=== PATIENT | male | born 1970 | race Caucasian/White ===

== ENCOUNTER 2023-02-16 13:14 | Emergency (ER) | payer SELFPAY ==
[2023-02-16] VITALS (7 sets, daily range): BP systolic 139–170; BP diastolic 77–100; PULSE 80–121; RESP 14–21; TEMP 36.9–37.2; O2SAT 95–99; BMI 29.6
--- NOTE | 2023-02-16 13:25 | NURSING ---
NO OLD EKGS
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
--- NOTE | 2023-02-16 14:15 | CT_ITS ---
We are attempting to reach an attending provider to discuss findings. An addendum with communication details will be sent when the communication is complete. STUDY: STROKE PROTOCOL CT BRAIN WITHOUT CONTRAST REASON FOR EXAM: Male, 52 years old. Neuro deficit, acute, stroke suspected confusion, trouble speaking and recognizing objects, Hx CVA, HTN, HLD RADIATION DOSAGE (If Supplied By Facility): CTDIvol = ( ) mGy, DLP = ( ) mGycm TECHNIQUE: Transaxial CT imaging of the brain was performed without administration of intravenous contrast material. Individualized dose optimization techniques were used for this CT. COMPARISON: None. FINDINGS: Mild to moderate focal parenchymal loss and hypodensity in the posterior superior aspect of the right parietal lobe is consistent with sequela from an old infarct or old trauma. Normal soft tissue structures. Normal calvarium. There is mild cerebral atrophy with widening of the extra-axial spaces and ventricular dilatation. There are areas of decreased attenuation within the white matter tracts of the supratentorial brain, consistent with microvascular disease changes. Normal basal ganglia and thalami. Normal brainstem. Normal cerebellum. There is no demonstrated asymmetric dense artery sign or sulcal effacement or parenchymal edema. There is no intracranial hemorrhage. There are no findings of an acute ischemic infarction. There is mucoperiosteal inflammatory disease of the paranasal sinuses consistent with mild chronic sinusitis. ASPECTS Score for Acute Strokes: 9 CT/STROKE Brain/Head without Cont IMPRESSION: 1. Chronic involutional changes of the brain. 2. Mild to moderate focal parenchymal loss and hypodensity in the posterior superior aspect of the right parietal lobe is consistent with sequela from an old infarct or old trauma. 3. Concern for stroke/positive symptomatology should be further evaluated with CT brain perfusion/CTA or MRI of the brain for further assessment. Electronically Signed: Cassius Glez MD at 14:54 EDT Reading Location ID and State: [facility] / [place] , Service support ,
[2023-02-16 14:25] LABS: Absolute Lymphocyte Count 1.73 X10^3/uL (0.83-4.51); Absolute Neutrophil Count 5.5 X10^3/uL (2.0-7.7); Basophil# 0.05 X10^3/uL; Basophil% 0.6 % (0-1); Eosinophil# 0.09 X10^3/uL; Eosinophils% 1.1 % (0-5); Hematocrit 33.8 % (40-54); Hemoglobin 11.6 g/dL (13.0-16.5); Lymphocyte # 1.73 X10^3/ul (0.83-4.51); Lymphocyte % 21.4 % (19-41); Mean Corp Hgb Conc 34.3 g/dL (32-36); Mean Corpuscular Hgb 33.8 pg (27.0-32.0); Mean Corpuscular Volume 98.5 fL (80-94); Mean Platelet Vol. 10.7 fl (6.2-12.0); Monocyte# 0.74 X10^3/uL; Monocyte% 9.1 % (0-10); NRBC Flagged by Analyzer 0 % (0-5); Neutrophil # 5.45 X10^3/uL (2.7-7.7); Neutrophil % 67.4 % (47-70); Platelet Count 219 K/mm3 (150-450); RBC Distribution Width CV 12.4 % (11.6-14.6); RBC Distribution Width SD 44.2 fl (35.1-43.9); Red Blood Count 3.43 M/mm3 (4.6-6.2); White Blood Count 8.1 K/mm3 (4.4-11.0)
--- NOTE | 2023-02-16 14:29 | RAD_ITS ---
STUDY: X-RAY CHEST REASON FOR EXAM: Male, 52 years old. Neuro deficit, acute, stroke suspected TECHNIQUE: Single AP portable view of the chest. COMPARISON: None. FINDINGS: The lungs are clear and expanded. There is no demonstrated pleural abnormality. Normal size heart. Normal mediastinum and janene. Normal visualized pulmonary arteries. Normal visualized aortic arch and descending thoracic aorta. Normal visualized thoracic spine. Normal visualized ribs, clavicles, and shoulders. There is no demonstrated abnormality of the visualized soft tissue structures of the upper abdomen. RAD/Chest 1 View IMPRESSION: Normal x-ray examination of the chest. Electronically Signed: Cassius Glez MD at 15:28 EDT ,
[2023-02-16 14:39] LABS: International Normalized Ratio 1.6; Prothrombin Time (Protime)PT. 18.9 SECONDS (11.7-14.9)
[2023-02-16 14:40] LABS: Partial Thromboplast Time 73.6 Seconds (24.1-36.2)
[2023-02-16 14:48] LABS: Anion Gap 7 (5-15); BUN 15 mg/dL (7-18); BUN/Creat Ratio 12.2 RATIO (10-20); Calcium,Total 9.9 mg/dL (8.5-10.1); Chloride 109 mmol/L (98-107); Creatinine, Serum 1.23 mg/dL (0.70-1.30); EST Glomerular Filtration Rate 65 mL/min (>60); Est Glom Filt Rate - Afr Amer 79 mL/min (>60); Estimated Creatinine Clearance 66.42 ml/min; Glucose 115 mg/dL (74-106); Potassium 4.3 mmol/L (3.5-5.1); Sodium Level 137 mmol/L (136-145); Troponin-I HS 6 pg/mL (3.0-78.0)
[2023-02-16 15:56] LABS: Amphetamine Urine VISTA NEGATIVE (<1000 ng/mL); Barbiturate Urine VISTA NEGATIVE (< 200 ng/mL); Benzodiazepine Urine VISTA NEGATIVE (< 200 ng/mL); Cocaine Urine VISTA NEGATIVE (< 300 ng/mL); Ecstacy Urine VISTA NEGATIVE (< 500 ng/mL); Methadone Urine VISTA NEGATIVE (< 300 ng/mL); PCP Urine VISTA NEGATIVE (< 25 ng/mL); THC Urine VISTA NEGATIVE (< 50 ng/mL); Vista UDS pH Range 6
[2023-02-16] MEDS: Ziprasidone IM 20 MG/ML VIAL IM (17:15)
[2023-02-16] MEDS: LORazepam 2 MG/ML Syringe IM (17:15)
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
--- NOTE | 2023-02-16 18:27 | ED.RN ---
nihs cancelled at 1700.
--- NOTE | 2023-02-16 19:30 | ED.RN ---
Pt cooperative and awake. Pt thinks he at [facility]. Able to state birthday and name. x4 locked restrtaints removed at this time. Pt assisted up to the bathroom x1 assist.
--- NOTE | 2023-02-16 19:31 | NURSING ---
CRISIS NOTIFIED AT 193
--- NOTE | 2023-02-16 20:57 | ED.RN ---
crisis here but pt sleeping so she is going to see a pt at [facility].
[2023-02-17] VITALS (7 sets, daily range): BP systolic 111–165; BP diastolic 71–90; PULSE 71–101; RESP 14–16; TEMP 36.6; O2SAT 96–99; BMI 29.6
--- NOTE | 2023-02-17 04:15 | ED.RN ---
Patient wakes up and walks into the hallway, patient states he needs to use the restroom. Pt ambulates with steady gait to the restroom. This RN meets patient back in his room, patient looking around confused and states he does not know why he is here or where he is. This RN explains the events that took place that got him here and the events that took place while in the ED. Patient shaking his head in disbelief, patient apologizing for behavior. This RN asks patient if he is willing to speak to a crisis counselor and he agrees. Pt pleasant and cooperative at this time.
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
[2023-02-17] MEDS: Ziprasidone IM 20 MG/ML VIAL IM (07:20)
--- NOTE | 2023-02-17 07:21 | ED.RN ---
0710--PT WALKING OUT OF ROOM. PT BECOMING LOUD,UNCOOPERATIVE. PT REFUSING TO GO BACK INTO ROOM. SECURITY AT BEDSIDE. PT SWEARING AT STAFF. ORDER FOR HANNAH TRIPLETTVED AND GIVEN
--- NOTE | 2023-02-17 08:15 | NURSING ---
CRISIS TRYING TO REACH [facility] FOR CONTINUED CARE
--- NOTE | 2023-02-17 11:37 | ED.RN ---
Patient resting in bed, family at bedside.
--- NOTE | 2023-02-17 12:49 | ED.RN ---
[facility] REQUESTING DRIVERS LICENSE COPY, DEMOGRAPHIC SHEET AND SSN TO BE FAXED TO [facility]
--- NOTE | 2023-02-17 13:03 | NURSING ---
FAXED FACESHEET AND DRIVERS LICENSE TO [facility]
--- NOTE | 2023-02-17 19:10 | ED.RN ---
Ronda with social work stated pt is referred to [facility].
--- NOTE | 2023-02-17 19:58 | CM.ED ---
Social Work SW spoke with Anny from crisis. Crisis reports [facility] is reviewing and will need to talk to [facility] for financial approval. Crisis to follow up with [facility] and will contact ED accordingly as [facility] may need to schedule transport for funding. Ronda Cho ASSESSMENT RN, SAFETY INTERN
--- NOTE | 2023-02-17 21:20 | ED.RN ---
Addendum entered by Samra Oneil 02/18/23 01:00: SONAL WITH CRISIS CALLED, PT MUST BE REFERRED TO [facility], [facility]ROUGH [facility]. THEY DO NOT DO OVER NIGHT REFERRALS, SO AT 6AM CRISIS WILL PUT A REFERRAL TO [facility] FOR [facility]. Original Note: SUREKHA WITH CRISIS CALLED, [facility] DENIED PT. [facility] MUST FOLLOW UP WITH [facility] BEFORE ANY OTHER REFERRALS ARE MADE.
[2023-02-18 04:46] VITALS: BP 106/69; PULSE 74; RESP 16; TEMP 36.4; O2SAT 98
--- NOTE | 2023-02-18 09:13 | NURSING ---
JUST TALKED TO SONAL FROM CRISIS. THEY ARE WORKING ON PLACEMENT AT [facility].
[2023-02-18 09:18] VITALS: BP 116/87; PULSE 96; RESP 18; O2SAT 96
[2023-02-18 12:11] LABS: AST(SGOT) 46 U/L (15-37); Alanine Aminotransfer ALT/SGPT 30 U/L (16-61); Alkaline Phosphatase 182 U/L (45-117); Bilirubin, Direct 0.37 mg/dL (0.00-0.30)
[2023-02-18 12:41] LABS: Bacteria 0 SEEN /hpf (None Seen); Mucous, Urine 0 SEEN /hpf (<or=2+); White Blood Cells 0 SEEN /hpf (0-5)
[2023-02-18 12:56] LABS: Color, Urine Yellow (Yellow); Glucose, Dipstick Normal (Normal); Ketone-Dipstick Negative (Negative); Leukocyte Esterase-Dipstick Negative /ul (Negative); Nitrite-Dipstick Negative (Negative); Occult Blood-Urine 10 /ul (Negative); Protein-Dipstick 30 mg/dl (Negative); Urine Bilirubin Dipstick Negative (Negative); Urine Clarity Sl. Cloudy (Clear); Urine Urobilinogen Normal (Normal)
[2023-02-18 13:00] VITALS: BP 121/74; PULSE 89; RESP 16; O2SAT 98
[2023-02-18 13:03] LABS: Red Blood Cells-Urine 0-5 SEEN /hpf (0-5); Squamous Epithelial Cells - UA 0-5 SEEN /hpf (0-5)
[2023-02-18 13:04] LABS: Alcohol, Blood (Medical)-Serum < 3.0 mg/dL
--- NOTE | 2023-02-18 14:24 | ED.RN ---
Sister and clergy in to visit pt. Pt sits in room and converses appropriately with them. Pt remains calm and cooperative at this time, no signs of distress.
--- NOTE | 2023-02-18 15:13 | ED.RN ---
COUNSELING CENTER CALLS FOLLOWING UP THAT PT HAD REQUESTED RESULTS FAXED TO REQUESTED FACILITY. [facility]SEL[facility] INFORMED ALL REQUESTED RESULTS HAD BEEN FAXED AND THAT WE HAVE NOT HEARD FROM THE RECEIVING FACILITY SINCE.
--- NOTE | 2023-02-18 15:15 | ED.RN ---
khoa from crisis called- [facility] receieved all requested patient tests and the dr is reviewing. no beds today.
--- NOTE | 2023-02-18 15:24 | ED.RN ---
Pt's sister at bedside, verbalized to this RN that she gave pt his home meds of coumadin, lisinopril and atorvastatin. This RN educated sister and pt on importance of not taking home medications unless ordered by ED MD. Family also re-educated on restrictions of bringing in items for mental health pts, both sisters present verbalized understanding. ED MD updated on pt taking home meds.
[2023-02-18 18:11] VITALS: BP 140/81; PULSE 90; RESP 18; O2SAT 98
[2023-02-18 22:29] VITALS: BP 123/74; PULSE 87; RESP 16; O2SAT 99
--- NOTE | 2023-02-18 23:49 | ED.RN ---
Pt remains cooperative, voices understanding with plan for placement for psychiatric evaluation. Pt states he doesn't feel he really needs it. States I can explain everything, pt verbalized it was all just a big misunderstanding. However pt cannot remember all of the events during his stay in the ED. Pt reminded that his friend was concerned enough with his behavior to call 911. Also reminded that ED MD and crisis felt he would benefit from further evaluation. Pt resting in bed at this time.
[2023-02-19 06:55] VITALS: BP 114/76; PULSE 82; RESP 20; TEMP 37; O2SAT 99
--- NOTE | 2023-02-19 07:47 | ED.RN ---
Breakfast tray delivered
--- NOTE | 2023-02-19 08:30 | ED.RN ---
THIS RN RECEIVES PHONE CALL FROM PT BROTHER, PER BROTHER ELKIN REQUESTING PT TO BE TRANSFERRED TO [facility] FOR MEDICAL EVALUATION. THIS RN TAKE BROTHERS PHONE NUMBER AND GIVES MESSAGE TO PRIMARY RN.
--- NOTE | 2023-02-19 09:08 | ED.RN ---
THIS RN SPOKE WITH CRISIS COUNSELOR OLIVIA. PER OLIVIA, HE CALLED THE REFERRED FACILITY TO CHECK ON A BED UPDATE, AND THE FACILITY REQUESTED OLIVIA TO CALL BACK AROUND 11 AM TO DETERMINE DISCHARGES AND BED POTENTIAL.
--- NOTE | 2023-02-19 09:12 | ED.RN ---
Radha with brother Max ([phone]) in regard to transfer and mental health facility process. Verbalized understanding. Awaitinf ready bed at [facility].
[2023-02-19] MEDS: Lisinopril 10 MG Tablet PO (09:47)
[2023-02-19] MEDS: Atorvastatin Calcium 80 MG Tablet PO (09:47)
[2023-02-19] MEDS: Aspirin 81 MG TAB.CHEW PO (09:47)
--- NOTE | 2023-02-19 11:58 | ED.RN ---
PT TO SHOWER WITH JUSTINO CARL AND OFFICER BIRDIE. PT COOPERATIVE
--- NOTE | 2023-02-19 14:00 | ED.RN ---
Resting without complaint. Awaiting transfer.
--- NOTE | 2023-02-19 14:18 | ED.RN ---
PT ACCEPTED AT [facility]. DR PERDOMO. REPORT TO PABLO APARICIO
--- NOTE | 2023-02-19 16:40 | CM.ED ---
Social Work Emergency Department Collaboration with emergency department social media specialist Ronda Cho this date regarding phone calls Ronda received from the patient's brother. Chart reviewed and noted family has called in expressing desire to have patient taken to another facility for medical evaluation. Noted that patient was determined to need psychiatric placement and that placement has been pursued with acceptance at [facility]. Noted that the counseling center has been working with [facility], patient's home [facility], due to patient being self-pay status requiring [facility] collaboration for placement/funding purposes. Noted pink slip is also on the chart. Reviewed emergency department physician documentation as well as the crisis assessment from the counseling center, both indicating need for mental health treatment. Conferred with [facility] risk-management due to reports that patient's family is unhappy and has been discussing wanting to take the patient out AGAINST MEDICAL ADVICE. Received update from KIM Cho, that a bed became available at [facility]. Crisis at the counseling center working on scheduling transport with [employer], transport company that [facility] works with. Met with patient in room, introducing self and social work role. KIM Cho also present. Besides patient, 2 of patient's brothers, Max and Balta present in the room. Brothers immediately voiced desire to take patient out of [facility] and take patient to [facility] where patient can be evaluated for both medical and emotional health issues. Max reports belief that patient's issues are actually medically related. Balta voices worry that patient is having undiagnosed seizures, due to patient having periodic episodes of blacking out and not remembering things. Supportive listening provided. This policy writer typist observed Balta to tell the patient to ask for his medical records. Patient then started asking for a copy of his medical records. Family also requesting to speak with physician. Rojas cleo has called [facility], and will be suing the hospital if patient has acute medical concerns that are not being treated. Acknowledged it is patient/family's right to make whatever calls felt to be needed. This policy writer typist indicated will check on the medical records request and be back to speak with the patient and family. This policy writer typist conferred with Dr. Joés, regarding patient's current medical status and that nothing further needed to be done to determine medical stabilization. Also updated physician that patient and family are requesting to speak with the physician. Updated ED nursing clerk, patient advocate, and risk-management. Presented back to patient's room, and patient advocate in room speaking with the patient. Upon completion of patient advocate conversation with the patient, this policy writer typist spoke with patient, and patient's brothers. Provided patient with a release of information to request his medical records. Educated that the medical record is not complete until the patient is discharged, and therefore a copy of the medical record would not be available until after discharge. Explained there are both records electronically and on paper, and that is patient continues to be a patient in the hospital there will be more updates the patient would not have. Patient voices desire to have records released to his brother Max. Patient alert and oriented to person, place, month and year. Patient signed release of information. This policy writer typist then spent much time listening to patient and family's concern about patient's medical history, current medical status, and wanting the patient to be at a facility that can address both. Updated that spoke with physician and at this point need for inpatient medical care has been ruled out as well as need for transfer to a tertiary care center for medical reasons. Educated that it was determined further mental health evaluation treatment would be of benefit, and that a bed has been secured at [facility]. The brother Rojas inquired about taking the patient AGAINST MEDICAL ADVICE, to which this policy writer typist educated is not a possibility when the patient has been pink slipped. Educated options are to continue with inpatient treatment as planned, or a physician determining that the pink slip is no longer needed. Much supportive listening provided, validated family wanting to advocate for the patient and ensure patient's needs are being met. Acknowledged to the patient that it can be frustrated being in the hospital for so long. Discussed with the patient and family, that the family can speak with the patient advocate and/or social work at [facility] to convey concerns about patient's medical history and concern that some of the symptoms may in fact be related to medical issues. Educated patient that patient can sign releases of information at [facility] to include the family and his plan of care. Discussed with patient and family, that his family seem to want the patient to be evaluated by experts, that going to [facility] is an opportunity for patient to be evaluated by an expert in mental health. Explored medical issues can impact emotional health and vice versa, and that this is an opportunity to ensure that no emotional health component is being missed, as well as getting the patient engaged with mental health services sooner. Patient's brother Max voiced that this actually makes sense, and the brother Balta indicated feeling more comfortable with the idea of patient going to [facility]. Educated to inpatient psychiatric services, as far as length of stay: Patient can sign himself in voluntarily until the physician feels the patient is ready for discharge, patient can remain involuntary and be discharged within 72-[address] court days, or if treatment is needed beyond 72 hours the hospital can file papers to keep the patient longer. Balta voiced belief that if the patient continues to act and behave is currently is, the patient would be out in a very short time. By end of conversation, patient and family appearing to be accepting of plan for inpatient psychiatric hospitalization, as evidenced by the brothers asking when the patient would be moved. Educated that waiting on [facility] Barthol[facility] for a time for transport. Balta jokingly voiced that patient could be transported by the family, and then patient seriously asked why this could not happen. Educated patient that when somebody is pink slipped, transport is done by a transport company. Educated that being transported by a transport company to ensure safety, especially if there is any type of an emergency during transport to ensure that needs are met. Patient appeared to accept this explanation. This policy writer typist offered family and patient opportunity to ask additional questions. Again much support, encouragement, and validation provided to patient and family regarding patient's current situation. Updated Dr. José that patient and family seem to be more accepting of plan for psychiatric placement, patient and family are still anticipating a visit from the physician yet today. Updated ED nursing staff. Plan: [facility] behavioral health care when transport can be arranged. -GLORY Mcnamara, DEMENTIA PROGRAM DIRECTOR *This note was generated with [employer] software. It may contain incorrect words, spelling, and punctuation that were not noted in review of the chart prior to signing*
[2023-02-19 17:03] VITALS: BP 101/88; PULSE 94; RESP 16
--- NOTE | 2023-02-19 17:08 | ED.RN ---
DR. VASQUEZ IN ROOM TALKING WITH PT FAMILY
[2023-02-19 19:49] VITALS: BP 112/67; PULSE 79; RESP 17; O2SAT 96
--- NOTE | 2023-02-19 19:51 | CM.ED ---
Addendum entered by Ronda Cho 02/19/23 20:08: Pt awaiting transportation through [employer] due to contract for indigent patients through [facility]. No transport currently available. SW called [facility] regarding whether another transport could be used and billed to them. Small Engine Trainer at [facility] reports no other transportation is to be utilized due to contract. SW spoke with crisis who continued to try to secure transport. Transport now scheduled through [employer], , for approx 1am and that they will call if they can transport earlier than time. Transport indicated time could fluctuate depending on schedule. Patient and brothers present in the room and notified of pending transport and approx. time. SW provided emotional support and checked on needs. Ronda ALVAREZ, NORMA Original Note: Social Work SW received call from patient's brother x2. Amandeep Zhou expressed concerns regarding brother's care and process. SW provided emotional support and explained the process. Pt is a resident outside of [facility] and indigent, requiring approval of funding by [facility] which is [facility]. Pt was assessed by crisis and determined to need psychiatric placement. Patient is currently awaiting placement. Amandeep given patient advocate number, crisis number and [facility] facility number. Pt pending bed availability at [facility] via [facility]. SW contacted crisis to fax crisis assessment and additional documentation regarding patient. SW requested crisis to follow-up with patient and re-evaluate patient status. Crisis to see patient after 2pm, however patient was accepted to [facility] prior to crisis arrival and crisis re-eval was cancelled. Ronda ALVAREZ, NORMA
[2023-02-20 01:14] VITALS: BP 116/71; PULSE 76; RESP 20; TEMP 36.4; O2SAT 100
--- NOTE | 2023-02-20 01:44 | ED.RN ---
Called CRISIS to check transport for pt estimated ETA 0100. Informed CRISIS will call and respond with new ETA.
--- NOTE | 2023-02-20 02:14 | ED.RN ---
Attempted to call [facility] for updated report. Senior Sales Consultant at facility stated admissions are not done at night and pt did not have room number. This RN explained to malt liquors sales supervisor there is acceptance and was told that bed was ready and waiting. Also stated that ambulance company is not contracted through [facility] and there is no way to contact company. Senior Sales Consultant continued to state pt does not have a bed and will not be accepted tonight. whiskey proof reader notified, CRISIS called.
[2023-02-20 02:21] VITALS: BP 116/71; PULSE 76; RESP 20; O2SAT 100
--- NOTE | 2023-02-20 02:31 | ED.RN ---
Phone call placed to Counseling Center to advise of [facility] not accepting patient, spoke to crisis counselor Peace. Peace called and spoke to facility then returned call to this nurse. Peace reports that [facility] does not have an intake team until 6am, so therefore transport was not supposed to occur until after 6:30am. Peace reports that the Counseling Center takes full responsibility as they were the ones who set up transport for 1am. Peace will call transport and inform of same. Peace calls back and reports that ETA for return is [address] Ruff of same.
--- NOTE | 2023-02-20 02:53 | ED.RN ---
Patient arrives back to facility. Explained circumstances to family and patient, they are cooperative and understanding. Warm blankets provided. Counseling Center to call to set up new transport at 6:30am and will call [facility] ER with new arrival time.
[2023-02-20 06:09] VITALS: BP 125/73; PULSE 70; RESP 17; O2SAT 98
--- NOTE | 2023-02-20 06:55 | ED.RN ---
Francie with [facility] called for ETA. Advised that [facility] is setting up transport and will call [facility] ER with ETA, and ER will call [facility] with ETA and update on patient. Francie in Admissions [phone] ext [phone]
--- NOTE | 2023-02-20 07:05 | NURSING ---
PATTIE DRISCOLL - WILL BE HERE ABOUT 9 AM
--- NOTE | 2023-02-20 07:15 | ED.RN ---
introduced selfto patient and brothers. given breakfast tray. blankets and offered brothers food as well. guest trays ordered. charge nurse vamsi also engaged with pt, family and admit.
--- NOTE | 2023-02-20 08:00 | ED.RN ---
Azalia Mera, department ,manager transit at bedside. hearing and conversing with patient and family. pt and family updated on care status. squad in route with eta 0900.
[2023-02-20] MEDS: Atorvastatin Calcium 80 MG Tablet PO (09:18)
[2023-02-20] MEDS: Lisinopril 10 MG Tablet PO (09:18)
[2023-02-20] MEDS: Aspirin 81 MG TAB.CHEW PO (09:18)
--- NOTE | 2023-02-20 09:24 | ED.RN ---
family updated. transport was called and verified in route but delayed eta [id number]. called pharmacy and daily meds sent up to give prior to departure. new mar printed for receiving facility to reflect all meds given today
--- NOTE | 2023-02-20 09:31 | NURSING ---
0915 jessica cooper still 20 - 30 min out
--- NOTE | 2023-02-20 09:45 | ED.RN ---
transport here. report given. pt reviewed belongings with nursing prior to it being handed to ems. declines need for bathroom. called recieving facility with update. and reviewed meds given this am and answered any other questions.
== END 2023-02-20 09:58 ==
PROVIDERS: Emergency Medicine; Emergency Provider Emergency Medicine; Visit Provider Emergency Medicine
DX: F22 Delusional disorders (principal); F23 Brief psychotic disorder; I10 Essential (primary) hypertension; E78.5 Hyperlipidemia, unspecified; F17.210 Nicotine dependence, cigarettes, uncomplicated; Z79.899 Other long term (current) drug therapy; Z79.01 Long term (current) use of anticoagulants; Z79.82 Long term (current) use of aspirin; Z86.73 Personal history of transient ischemic attack (TIA), and cerebral infarction without residual deficits; Z90.49 Acquired absence of other specified parts of digestive tract
CPT/HCPCS: 70450; 71045; 80048; 80076; 80307; 81001; 82077; 84484; 85025; 85610; 85730; 87811; 93005; 96372; 99285; A4216; J3486